=== PATIENT | female | born 1950 | race Caucasian/White ===

== ENCOUNTER → 2016-06-13 | Outpatient (CLI) | payer MEDICARE ==
--- NOTE | 2016-06-14 06:42 | XR ---
EXAMINATION TYPE: XR lumbosacral spine min 4V DATE OF EXAM ORDERED: 06/13/2016 4:51 PM HISTORY: [id number] rt hip pain, LBP. COMPARISON: None. FINDINGS: The bones are osteopenic, likely on the basis of osteoporosis. Vertebral body height and alignment are maintained. There is no spondylolysis or spondylolisthesis. N o fractures are seen. There is facet arthropathy in the lower 2 lumbar facets, greater on the right t english the left. The pedicles are intact. IMPRESSION: 1. NO ACUTE OSSEOUS LESION. 2. MINIMAL DEGENERATIVE CHANGE.
--- NOTE | 2016-06-14 06:44 | XR ---
EXAMINATION TYPE: XR Hip Complete RT DATE OF EXAM ORDERED: 06/13/2016 4:51 PM HISTORY: [id number] rt hip pain, LBP. COMPARISON: None. FINDINGS: The right hip is nonspherical. There is mild overgrowth of the acetabulum. Joint spaces ar e maintained. IMPRESSION: PLEASE CORRELATE CLINICALLY FOR FEMOROACETABULAR IMPINGEMENT SYNDROME.
== END | disposition home or self-care (01) ==
LOC: RADXRYALE 16:32
PROVIDERS: ATTEND Family Medicine
DX: M47.817 Spondylosis without myelopathy or radiculopathy, lumbosacral region (principal); M25.551 Pain in right hip
CPT/HCPCS: 72110; 73502

== ENCOUNTER → 2018-10-08 | Outpatient (CLI) | payer MEDICARE ==
--- NOTE | 2018-10-08 17:48 | BD ---
EXAMINATION TYPE: Axial Bone Density DATE OF EXAM: 10/08/2018 COMPARISON: NONE CLINICAL HISTORY: 68 year-old female known osteoporosis Height: 4 FT 11 IN Weight: 127 FRAX RISK QUESTIONS: MENOPAUSE BEFORE AGE 43 :YES History of Fracture in Adulthood: YES RISK FACTORS HISTORY OF: History of Wrist Fracture: YES When: 5-6 YERS AGO Surgery to Spine/Hip(right/left)/Wrist (right/left): YES When: 5-6 YEARS AGO Active: YES Postmenopausal woman: AGE 33 STATES SHE HAD TUBUL AND AT THAT TIME HER CYCLES STOPPED NO HYST Lost more than 2 inches in height since high school: YES MEDICATIONS: Additional Medications: CELEBREX, BLOOD PRESSURE MEDS Additional History: EXAM MEASUREMENTS: Bone mineral densitometry was performed using the [employer] System. Bone mineral density as measured about the Lumbar spine is: ----- L1-L4(G/cm2): 1.057 T Score Values are as follows: ----- L2: -1.5 ----- L3: -1.1 ----- L4: -0.4 ----- L1-L4: -1.0 BASELINE Bone mineral density about the R hip (g/cm2): 0.638 Bone mineral density about the L hip (g/cm2): 0.701 T Score values are as follows: -----R Neck: -2.9 -----L Neck: -2.4 -----R Total: -2.4 -----L Total: -2.3 BASELINE IMPRESSION: Osteoporosis (T Score less than -2.5). There is increased fracture risk and therapy is usually indicated based on age. Re-Screen 1-2 years. NOTE: T-SCORE=SD OF THE YOUNG ADULT MEAN.
== END | disposition home or self-care (01) ==
LOC: RADBDWWP 14:40
PROVIDERS: ATTEND Family Medicine
DX: M81.0 Age-related osteoporosis without current pathological fracture (principal)
CPT/HCPCS: 77080

== ENCOUNTER 2024-03-02 13:30 | Day surgery (SDC) | payer MEDICARE ==
[~2024-03-02 13:30] MED LIST: LACTATED RINGERS 1,000 ML IV SCH
[2024-03-02] MEDS: IV FLUID CONTINUATION 1,000 ML IV ONE (13:43)
[2024-03-02 13:44] VITALS: RESP 16; TEMP 96
[2024-03-02] MEDS: LACTATED RINGERS 1,000 ML IV SCH (13:50)
[2024-03-02] MEDS ORDERED: LIDOCAINE 1% INJ 10MG/ML (20 ML MDV) ONE (14:34)
[2024-03-02] MEDS ORDERED: PROPOFOL 10 MG/ML 20 ML VIAL IV ONE (14:34)
--- NOTE | 2024-03-02 14:37 | P.GSHP ---
History of Present Illness H&P Date: 03/02/24 Chief Complaint: Peptic ulcer disease Is a 74-year-old female with complaints of epigastric pain. Patient is today for EGD to evaluate for peptic ulcer disease. Past Medical History Past Medical History: GERD/Reflux, Hypertension, Osteoarthritis (OA) Additional Past Medical History / Comment(s): left knee pain; ulcer, having dysphagia x 2 months History of Any Multi-Drug Resistant Organisms: None Reported Past Surgical History: Appendectomy Past Anesthesia/Blood Transfusion Reactions: No Reported Reaction Smoking Status: Never smoker Medications and Allergies Home Medications Medication Instructions Recorded Confirmed Type Acetaminophen with Codeine 1 tab PO TID 02/27/24 03/02/24 History [Tylenol #4 Tablet] Lansoprazole 30 mg PO DAILY 02/27/24 03/02/24 History amLODIPine [Norvasc] 10 mg PO HS 02/27/24 03/02/24 History lisinopriL 40 mg PO DAILY 02/27/24 03/02/24 History Allergies Allergy/AdvReac Type Severity Reaction Status Date / Time No Known Allergies Allergy Verified 03/02/24 13:41 Surgical - Exam Vital Signs Temp Pulse Resp BP Pulse Ox 96.0 F L 85 16 181/88 94 L 03/02/24 13:43 03/02/24 13:43 03/02/24 13:43 03/02/24 13:43 03/02/24 13:43 - General well developed, well nourished, no distress - Eyes PERRL - ENT normal pinna - Neck no masses - Respiratory normal expansion - Cardiovascular Rhythm: regular - Abdomen Abdomen: soft, non tender Assessment and Plan Assessment: Will perform EGD to eval for peptic ulcer disease.
--- NOTE | 2024-03-02 14:47 | P.OP ---
Date of Procedure: 03/02/24 Preoperative Diagnosis: Peptic ulcer disease Postoperative Diagnosis: Gastric ulcer Procedure(s) Performed: EGD Anesthesia: MAC Surgeon: Brennan Loving Pathology: other (Gastric ulcer) Condition: stable Disposition: PACU Description of Procedure: Patient is placed on the endoscopy table in the lateral position. She received IV sedation. The gastric was placed oropharynx passed in the esophagus and the stomach. In the antrum portion of the stomach there was a large ulcer seen. There was an exudative base. There was no active bleeding. A biopsy was performed. The scope could not be entered into the duodenum. The scope was withdrawn. Remainder of the stomach appeared normal. The GE junction was at 40 cm. The distal esophagus appeared normal. The proximal esophagus provokers scope withdrawn the patient.
[2024-03-02 15:11] VITALS: BP 161/77; PULSE 75
== END 2024-03-02 15:32 | disposition home or self-care (01) ==
LOC: ORWHC2ENDO 13:30
PROVIDERS: ATTEND Surgery
DX: K29.50 Unspecified chronic gastritis without bleeding (principal); K31.A0 Gastric intestinal metaplasia, unspecified; K25.9 Gastric ulcer, unspecified as acute or chronic, without hemorrhage or perforation; K21.9 Gastro-esophageal reflux disease without esophagitis; I10 Essential (primary) hypertension; M19.90 Unspecified osteoarthritis, unspecified site; Z79.899 Other long term (current) drug therapy; Z90.49 Acquired absence of other specified parts of digestive tract
CPT/HCPCS: 43239; J2003; J2704; 88305

== ENCOUNTER 2024-05-11 13:49 | Day surgery (SDC) | payer MEDICARE ==
[2024-05-08 09:25] VITALS: BMI 24.4
[2024-05-11] MEDS ORDERED: LIDOCAINE 1% (10MG/ML) FOR IV START INTRADERMA PRN (14:02)
[2024-05-11 14:17] VITALS: TEMP 97.9
[2024-05-11] MEDS: IV FLUID CONTINUATION 1,000 ML IV ONE (14:17)
[2024-05-11] MEDS: LACTATED RINGERS 1,000 ML IV SCH (14:17)
[2024-05-11] MEDS ORDERED: LIDOCAINE 1% INJ 10MG/ML (20 ML MDV) ONE (15:32)
[2024-05-11] MEDS ORDERED: PROPOFOL 10 MG/ML 20 ML VIAL IV ONE (15:32)
--- NOTE | 2024-05-11 15:35 | P.GSHP ---
History of Present Illness H&P Date: 05/11/24 Chief Complaint: Peptic ulcer disease This is a 74-year-old female with previous history of gastric ulcer. Patient presents today for EGD. Past Medical History Past Medical History: Asthma, GERD/Reflux, Hypertension, Osteoarthritis (OA) Additional Past Medical History / Comment(s): left knee pain; ulcer, having dysphagia x 2 months History of Any Multi-Drug Resistant Organisms: None Reported Past Surgical History: Appendectomy Additional Past Surgical History / Comment(s): "I had surgery to remove an ulcer." EGD Past Anesthesia/Blood Transfusion Reactions: No Reported Reaction Additional Past Anesthesia/Blood Transfusion Reaction / Comment(s): No hx of blood transfuxion to date. Smoking Status: Never smoker - Past Family History Father Family Medical History: Cancer Additional Family Medical History / Comment(s): Multiple Myeloma Medications and Allergies Home Medications Medication Instructions Recorded Confirmed Type Acetaminophen with Codeine 1 tab PO TID PRN 02/27/24 05/11/24 History [Tylenol #4 Tablet] Lansoprazole 30 mg PO DAILY 02/27/24 05/11/24 History amLODIPine [Norvasc] 10 mg PO HS 02/27/24 05/11/24 History lisinopriL 40 mg PO DAILY 02/27/24 05/11/24 History Fluticasone/Umeclidin/Vilanter 1 puff INHALATION QAM 05/08/24 05/11/24 History [Trelegy Ellipta 100-62.5-25] Allergies Allergy/AdvReac Type Severity Reaction Status Date / Time No Known Allergies Allergy Verified 05/11/24 14:07 Surgical - Exam Vital Signs Temp Pulse Resp BP Pulse Ox 97.9 F 98 16 138/71 96 05/11/24 14:11 05/11/24 14:11 05/11/24 14:11 05/11/24 14:11 05/11/24 14:11 - General well developed, well nourished, no distress - Eyes PERRL - ENT normal pinna - Neck no masses - Respiratory normal expansion - Cardiovascular Rhythm: regular - Abdomen Abdomen: soft, non tender Assessment and Plan Assessment: History of gastric ulcer. Will perform EGD.
--- NOTE | 2024-05-11 15:43 | P.OP ---
Date of Procedure: 05/11/24 Preoperative Diagnosis: Peptic ulcer disease Postoperative Diagnosis: Peptic ulcer disease Gastric outlet scarring with ulceration Esophagitis Procedure(s) Performed: EGD Anesthesia: MAC Surgeon: Brennan Loving Pathology: other (Stomach) Condition: stable Disposition: PACU Description of Procedure: Patient was placed on the endoscopy table in the lateral position. She received IV sedation. The gas was placed oropharynx passed in the esophagus and the stomach. The gastric L appeared to be scarred. There was evidence of inflammation. This area was biopsied. It was unclear if the patient had a previous partial gastrectomy. The gastric outlet was biopsied. The scope was retroflexed there was retained food in the stomach. The GE junction was at 40 cm. The distal esophagus appeared flan. The proximal esophagus appeared normal. Scope withdrawn for patient. Patient was scheduled for esophagram upper GI.
[2024-05-11 16:48] VITALS: BP 146/88; PULSE 69; RESP 18
== END 2024-05-11 16:30 | disposition home or self-care (01) ==
LOC: ORWHC2ENDO 13:49
PROVIDERS: ATTEND Surgery
DX: K29.50 Unspecified chronic gastritis without bleeding (principal); K31.A0 Gastric intestinal metaplasia, unspecified; K27.9 Peptic ulcer, site unspecified, unspecified as acute or chronic, without hemorrhage or perforation; K21.00 Gastro-esophageal reflux disease with esophagitis, without bleeding; I10 Essential (primary) hypertension; J45.909 Unspecified asthma, uncomplicated; M19.90 Unspecified osteoarthritis, unspecified site; Z90.49 Acquired absence of other specified parts of digestive tract; Z79.899 Other long term (current) drug therapy
CPT/HCPCS: 88305; 88342; 43239; J2003; J2704

== ENCOUNTER → 2024-05-13 | Outpatient (CLI) | payer MEDICARE ==
--- NOTE | 2024-05-13 15:15 | FL ---
EXAMINATION TYPE: FL UGI w esophagus DATE OF EXAM: 05/13/2024 COMPARISON: None CLINICAL INDICATION: Female, 74 years old with history of K25.9 GASTRIC ULCER, UNSP ACUTE OR CHRON IC, W/O; PH[facility], patient reports previous gastric ulcer with surgery for removal. TECHNIQUE: A double contrast UGI study is performed. A total of 4 minutes 14 seconds of fluoroscopi c time was utilized during procedure and 79 images obtained. Total dose area product (DAP) in uGy*m?, mGy*cm? (or similar): 250. FINDINGS: There are intermittent episodes of penetration without aspiration. Moderate degenerative disc disease with anterior endplate spondylosis C5-C6 causes mild impression along the back wall of the cervical esophagus without obstruction. Otherwise, the hypopharyngeal anatomy is preserved. The thoracic portion shows a normal course and caliber. There are blunted secondary stripping waves w ith residual contrast in the mid esophagus and delayed clearance. There is diffuse fine mucosal irregularity throughout the thoracic esophagus. No abnormal filling def ect is seen. No sizable hiatal hernia is identified. However, there are spontaneous episodes of moderate gastroeso phageal reflux. The stomach is distended with air contrast. No suspicious filling defect is identified. There appears to be a small focal smooth outpouching projecting superiorly from the expected region of the distal gastric body/antrum. We are unable to identify the normal gastroduodenal junction and duodenal C-loop. There is question o f previous distal gastric surgery and the formation of an end to side gastrojejunostomy. The anastomo sis appears markedly narrowed but without obstruction. Please refer to page 75 of 79. IMPRESSION: 1. We are unable to identify a normal gastroduodenal junction or duodenal C-loop. Question previous d istal gastric resection and gastrojejunostomy. If this is the case, the anastomosis appears markedly narrowed (refer to page 75 of 79). Unclear if this corresponds to the possible ulcer seen on endoscop y. 2. Diffuse fine mucosal irregularity throughout the thoracic esophagus. Correlate for any esophageal pain which would suggest fine mucosal erosions relating to an esophagitis. If endoscopy appeared norm al and the patient is asymptomatic, other considerations include benign etiologies such as feline eso phagus and glycogenic acanthosis. Further clinical correlation recommended. 3. There is a small smooth outpouching from the expected distal gastric body/antrum. Possible postsur gical change. 4. No sizable hiatal hernia. However, there is moderate gastroesophageal reflux encountered. [facility], , 05/13/2024 3:12 PM
== END | disposition home or self-care (01) ==
LOC: RADFLMAIN 12:29
PROVIDERS: ATTEND Surgery
DX: K25.9 Gastric ulcer, unspecified as acute or chronic, without hemorrhage or perforation (principal); K21.9 Gastro-esophageal reflux disease without esophagitis; L83 Acanthosis nigricans; Z87.11 Personal history of peptic ulcer disease
CPT/HCPCS: 74240